=== PATIENT | female | born 1965 | race Two or more races ===

== ENCOUNTER 2024-07-31 13:45 | Emergency (ER) | payer MEDICAID, SELFPAY ==
[2024-07-31 13:47] VITALS: BMI 22.1
[2024-07-31 13:58] VITALS: BP 216/117; BP 218/103; PULSE 70; RESP 20; TEMP 36.6; O2SAT 98
--- NOTE | 2024-07-31 14:08 | EDNOTE_ITS ---
ED Wound/Laceration-RME/HPI General Chief Complaint: Wound/Laceration Stated Complaint: FALL, RIGHT KNEE LACERATION Time Seen by Provider: 07/31/24 13:48 Arrival date/time: 07/31/24 13:45 RME / HPI RME / HPI narrative: 59-year-old female patient came in for evaluation regarding laceration to the right anterior knee. Patient tripped and fell on escalator resulting into a 3 cm gaping laceration to the right anterior knee. Patient is able to bend and extend the knee without any limitation. Patient is ambulatory. In the triage patient's blood pressure was noted above 200 systolic. Patient took her blood pressure medication this morning. Related Data Previous Rx's ?Medication ?Instructions ?Recorded ibuprofen 600 mg tablet 600 mg PO Q6HR #30 tabs 10/25 cephalexin 500 mg capsule 500 mg PO Q8H 7 days #21 cap s 07/31/24 ibuprofen 800 mg tablet 800 mg PO Q8H PRN pain #30 t abs 07/31/24 Allergies Allergy/AdvReac Type Severity Reaction Status Date / Time No Known Allergies Allergy Verified 07/31/24 13:47 Review of Systems Review of Systems Narrative Review of Systems: Review of system reviewed and within normal limits except mentioned in HPI ED Exam Narrative Physical exam: VITAL SIGNS: Reviewed. GENERAL APPEARANCE: Alert and interactive, follows commands, no acute distress, HEAD AND FACE: Non-traumatic. ENT: PERRL, pink conjunctivitis, eyelid no trauma, Mucous membrane moist. NECK: Supple, nontender, no nuchal rigidity. CHEST: No tenderness, no crepitus, no paradoxical movement, no retractions. LUNGS: Clear, well ventilated, symmetric, no rales, no wheezing, no ronchi, no stridor, good breath sounds bilaterally. HEART: Regular rate, regular rhythm, no murmur, no gallops. ABDOMEN: Soft, positive bowel sounds, nondistended, no guarding, nontender, no rebound, no masses, RECTAL: Deferred. GENITAL: Deferred. NEUROLOGICAL: Gross motor function intact sensory function intact, Appropriate for age. MUSCULOSKELETAL: low back nontender, full range of motion. EXTREMITIES: +3 centimeter gaping laceration, right anterior knee full range of motion of the knee SKIN: Color pink, dry, no rash, no lacerations, no abrasions, no contusions. LYMPHATICS: Deferred. Course Quality Measures none Orders Category Date Time Status Ibuprofen Tab [Motrin Tab] Med 07/31/24 14:05 Discontinued 800 mg PO X1 ONE Lidocaine 1% Pf 5 ml [Xylocaine 1% Pf 5 ml] Med 07/31/24 14:05 Discontinued 10 ml INFL X1 ONE TET,DIP/PERT AC (Adult)-Tdap [Boostrix Adult (Tdap) Med 07/31/24 14:05 Discontinued Vacc] 0.5 ml IMI .ONCE ONE cloNIDine HCL [Catapres] Med 07/31/24 14:05 Discontinued 0.2 mg PO X1 ONE Vital Signs Vital signs: Vital Signs Temperature 97.9 F 07/31/24 13:58 Pulse Rate 70 07/31/24 13:58 Respiratory Rate 20 07/31/24 13:58 Blood Pressure 216/117 H 07/31/24 13:58 Pulse Oximetry (%) 98 07/31/24 13:58 Oxygen Delivery Method Room Air 07/31/24 13:58 Procedures -ED Laceration Laceration 1: Site: lower extremity Size (cm): 3 Description: linear Depth: simple, single layer Local Anesthetic: lidocaine 1% Amount of anesthesia used (mL): 5 Pre-repair: wound explored, irrigated extensively and deep structures intact Skin layer closed with: nylon Size (cm): 4-0 Number of sutures: 6 Technique: simple, interrupted Wound / Laceration MDM Narrative MDM Narrative:: 59-year-old female patient came in for evaluation regarding laceration to the right anterior knee. Patient tripped and fell on escalator resulting into a 3 cm gaping laceration to the right anterior knee. Patient is able to bend and extend the knee without any limitation. Patient is ambulatory. In the triage patient's blood pressure was noted above 200 systolic. Patient took her blood pressure medication this morning. Imaging is not that at this time patient is ambulatory with no pain. Repair and suturing was done by me see procedure note Patient received Boostrix and Motrin Patient appears nontoxic and hemodynamically stable. Patient discharged home and instructed to follow-up with primary care provider in 24 to 48 hours. 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 How is presenting disease/condition affected by chronic disease/condition?: exacerbated by Evaluation data The following diagnostics were reviewed and interpreted by me:: other (specify) Lab and/or radiology exams considered but not ordered:: None Interpretation Summary: None Medications / Prescriptions Medications or Prescriptions considered but not ordered:: None Medication administrations:: Medication Administration History Discontinued Medications Clonidine (Clonidine Hcl 0.1 Mg Tablet) 0.2 mg PO X1 ONE Stop: 07/31/24 14:06 Last Admin: 07/31/24 14:33 Dose: 0.2 mg Documented By: Diphtheria/Tetanus/Acell Pertussis (Diphth,Pertuss(Acell),Tet Vac 0.5 Ml Syr- Adult) 0.5 ml IMi .ONCE ONE Stop: 07/31/24 14:06 Last Admin: 07/31/24 14:36 Dose: 0.5 ml Documented By: Ibuprofen (Ibuprofen Tab 400 Mg Tablet) 800 mg PO X1 ONE Stop: 07/31/24 14:06 Last Admin: 07/31/24 14:33 Dose: 800 mg Documented By: Lidocaine HCl (Lidocaine Inj Pf 1% 5 Ml Vial) 10 ml INFL X1 ONE Stop: 07/31/24 14:06 Last Admin: 07/31/24 14:36 Dose: 10 ml Documented By: Pernell Gray Consultations Consultation(s) initiated? (list below): No Diagnosis Wound Differential Diagnosis: laceration, abscess and avulsion of skin Most likely diagnosis given after review of the tests above:: Lower leg laceration Admission Indicated Admission indicated?: not indicated Admission Request Was there a request for admission?: No Disposition Plan Disposition Plan: Discharge Discharge Attestation Discharge Attestation: The patient and all family members were given an opportunity to ask questions and understood the discharge instructions. Discharge instructions specifically effects, indications for sooner follow up or return to the emergency department, and the expected course of current diagnosis. Patient condition: Stable Discharge Plan Plan Patient Disposition: HOME (Self Care) Disposition Comment: Stable Prescriptions/Referrals Prescriptions/Med Rec: New cephalexin 500 mg capsule 500 mg PO Q8H 7 Days Qty: 21 0RF ibuprofen 800 mg tablet 800 mg PO Q8H PRN (Reason: pain) Qty: 30 0RF No Action ibuprofen 600 MG tablet 600 mg PO Q6HR Qty: 30 0RF Problem List Clinical Impression: Laceration of leg Patient/Caregiver Discharge Instructions Discharge Activity: activity as tolerated Education Materials: ED Laceration: All Closures Additional Instructions: Thank you for the opportunity for serving you today. You are stable for discharged . You are advised to: Follow-up with your PCP in 1 to 2 days Return to ED for worsening of symptoms Increase oral fluids Take medication as prescribed Daily dressing with Neosporin as needed For removal of sutures in 10 days Print Language: Ghanaian Stand Alone Forms: Saritha Award Info., Patient Portal Info Letter
[2024-07-31 14:33] VITALS: BP 216/117; PULSE 70
[2024-07-31] MEDS: IBUPROFEN TAB 400 MG TABLET 800 MG PO (14:33)
[2024-07-31] MEDS: cloNIDine HCL 0.1 MG TABLET 0.2 MG PO (14:33)
[2024-07-31] MEDS: LIDOCAINE INJ PF 1% 5 ML VIAL 10 ML INFL (14:36)
[2024-07-31] MEDS: DIPHTH,PERTUSS(ACELL),TET VAC 0.5 ML SYR- ADULT IMi (14:36)
== END 2024-07-31 15:15 | disposition home or self-care (01) ==
PROVIDERS: Emergency Provider Emergency Medicine
DX: S81.011A Laceration without foreign body, right knee, initial encounter (principal); W01.0XXA Fall on same level from slipping, tripping and stumbling without subsequent striking against object, initial encounter; Z23 Encounter for immunization
CPT/HCPCS: 12002; 90471; 90715; 99283; J3490; A9270